=== PATIENT | female | born 1960 | race Caucasian/White ===

== ENCOUNTER 2020-01-24 07:43 | Outpatient (REF) | payer OTHER, SELFPAY ==
--- NOTE | 2020-01-24 07:48 | MM_ITS ---
EXAMINATION: MM SCREENING DIGITAL BREAST TOMOSYNTHESIS, BILATERAL CLINICAL INFORMATION: Screening. Asymptomatic. The lifetime risk of breast cancer based on the Tyrer-Cuzick Model is 8.2%. COMPARISON: Mammography: July 25, 2018 and studies dating back to October 01, 2011 TECHNIQUE: Digital breast tomosynthesis is performed in both the craniocaudal and mediolateral oblique views along with computer-aided detection (CAD). Synthesized 2D images are generated from the tomosynthesis. FINDINGS: The breasts are extremely dense, which lowers the sensitivity of mammography (ACR BI-RADS breast composition Category d). There are no significant masses, abnormal calcifications, or other abnormalities. MM/MM tomosynthesis screening BI IMPRESSION: There are no significant changes from prior study. ASSESSMENT: BI-RADS 1: Negative RECOMMENDATION: Routine annual mammography screening. This patient's information was entered into a reminder system with a target due date for their next mammogram.
== END 2020-01-24 07:44 | disposition home or self-care (01) ==
LOC: HO.MAMMO 07:43
PROVIDERS: PCP Internal Medicine; Visit Provider Internal Medicine
DX: Z12.31 Encounter for screening mammogram for malignant neoplasm of breast (principal)
CPT/HCPCS: 77063; 77067

== ENCOUNTER 2020-02-13 08:21 | Outpatient (REF) | payer OTHER, SELFPAY ==
[2020-02-13 08:39] LABS: COVID-19 Test Negative (Negative)
== END 2020-02-13 08:22 | disposition home or self-care (01) ==
LOC: HO.EMPCOV 08:21
PROVIDERS: PCP Internal Medicine; Visit Provider Internal Medicine
DX: Z20.828 Contact with and (suspected) exposure to other viral communicable diseases (principal)
CPT/HCPCS: 87635; C9803

== ENCOUNTER 2021-02-09 07:26 | Outpatient (REF) | payer OTHER, SELFPAY ==
--- NOTE | ~2021-02-09 | MM_ITS ---
EXAMINATION: MM SCREENING DIGITAL BREAST TOMOSYNTHESIS, BILATERAL CLINICAL INFORMATION: Screening. Asymptomatic. The lifetime risk of breast cancer based on the Tyrer-Cuzick Model is 8%. COMPARISON: Mammography: 01/24/2020, 07/25/2018, 07/20/2017 TECHNIQUE: Digital breast tomosynthesis is performed in both the craniocaudal and mediolateral oblique views along with computer-aided detection (CAD). Synthesized 2D images are generated from the tomosynthesis. Additional right CC view is provided. FINDINGS: The breasts are heterogeneously dense, which may obscure small masses (ACR BI-RADS breast composition Category c). There are no significant masses, abnormal calcifications, or other abnormalities. Parenchymal pattern is similar to prior studies. No developing density. No significant changes. MM/MM tomosynthesis screening BI IMPRESSION: No mammographic evidence of malignancy. ASSESSMENT: BI-RADS 1: Negative RECOMMENDATION: Routine annual mammography screening. This patient's information was entered into a reminder system with a target due date for their next mammogram.
== END 2021-02-09 07:27 | disposition home or self-care (01) ==
LOC: HO.MAMMO 07:26
PROVIDERS: PCP Internal Medicine; Visit Provider Obstetrics & Gynecology
DX: Z12.31 Encounter for screening mammogram for malignant neoplasm of breast (principal)
CPT/HCPCS: 77063; 77067

== ENCOUNTER 2022-02-16 07:31 | Outpatient (REF) | payer OTHER, SELFPAY ==
--- NOTE | ~2022-02-16 | MM_ITS ---
EXAMINATION: MM SCREENING DIGITAL BREAST TOMOSYNTHESIS, BILATERAL CLINICAL INFORMATION: Screening. Asymptomatic. The lifetime risk of breast cancer based on the Tyrer-Cuzick Model is 7.7%. COMPARISON: Mammography: February 09, 2021 and studies dating back to June 11, 2015 TECHNIQUE: Digital breast tomosynthesis is performed in both the craniocaudal and mediolateral oblique views along with computer-aided detection (CAD). Synthesized 2D images are generated from the tomosynthesis. FINDINGS: The breasts are extremely dense, which lowers the sensitivity of mammography (ACR BI-RADS breast composition Category d). There are no significant masses, abnormal calcifications, or other abnormalities. MM/MM tomosynthesis screening BI IMPRESSION: No significant changes from prior exam. ASSESSMENT: BI-RADS 1: Negative RECOMMENDATION: Routine annual mammography screening. This patient's information was entered into a reminder system with a target due date for their next mammogram.
== END 2022-02-16 07:32 | disposition home or self-care (01) ==
LOC: HO.MAMMO 07:31
PROVIDERS: PCP Internal Medicine; Visit Provider Internal Medicine
DX: Z12.31 Encounter for screening mammogram for malignant neoplasm of breast (principal)
CPT/HCPCS: 77063; 77067

== ENCOUNTER 2022-10-18 06:34 | Day surgery (SDC) | payer OTHER, SELFPAY ==
--- NOTE | 2022-10-15 10:08 | HO.ANESPROP2 ---
Documented by User: Vanessa Lawler NP 10/15/22 10:08 HPI - Anesthesia Eval Consult details Narrative: 62yo F for Colonoscopy [facility] Past Medical History Medical History (Updated 10/15/22 @ 06:34 by Maria Victoria Shaw RN) Abnormal colonoscopy Surgical History Surgical History (Updated 10/15/22 @ 06:34 by Maria Victoria Shaw RN) H/O: hysterectomy [place] teeth extracted Social History Social History (System 12/30/20 @ 09:06 by Shayna Ventura) Patient Tobacco Use Status: Never used Tobacco Use of substances other than those prescribed or required for medical reasons: No Are you DNR?: No Advance Directives: No Advance Directives Information Provided: Yes Meds Allergies Allergy/AdvReac Type Severity Reaction Status Date / Time bee pollen [bee stings] Allergy Anaphylaxis Verified 10/18/22 06:53 Home Medications Medication Instructions Recorded Confirmed Last Taken Type multivitamin 1 tab PO DAILY 10/18/22 10/18/22 Unknown History Exam Exam Date and Time: October 15, 2022 100 Assessment and Plan Assessment Anesthesia Assessment: Chart Reviewed Documented by User: Victor Manuel Sagastume MD 10/18/22 15:40 [facility] Past Medical History Medical History (Updated 10/15/22 @ 06:34 by Maria Victoria Shaw RN) Abnormal colonoscopy Functional capacity: independent ambulation Family History Family history of problems with anesthesia: No Surgical History Surgical History (Updated 10/15/22 @ 06:34 by Maria Victoria Shaw RN) H/O: hysterectomy [place] teeth extracted History of Problems with Anesthesia: No Social History Social History (System 12/30/20 @ 09:06 by Shayna Ventura) Patient Tobacco Use Status: Never used Tobacco Use of substances other than those prescribed or required for medical reasons: No Are you DNR?: No Advance Directives: No Advance Directives Information Provided: Yes Meds Allergies Allergy/AdvReac Type Severity Reaction Status Date / Time bee pollen [bee stings] Allergy Anaphylaxis Verified 10/18/22 06:53 Home Medications Medication Instructions Recorded Confirmed Last Taken Type multivitamin 1 tab PO DAILY 10/18/22 10/18/22 Unknown History Exam Airway Mallampati Class: III Neck ROM: Full Loose/Missing/Broken Teeth: Yes Assessment and Plan Assessment Anesthesia Assessment: Anesthesia Plan Discussed Final Anesthetic Review Family History of Problems with Anesthesia: No History of Problems with Anesthesia: No NPO: Yes ASA Class: I Final Preanesthetic Review: Meds/Allgs Chart Reviewed, Consent Obtained/Reviewed and Anes Risks/Benef Reviewed Patient Risk: Intermediate Procedure Risk: Intermediate Anesthetic Plan Anesthetic Plan: MAC: Disposition: Standard PACU
[2022-10-18 06:57] VITALS: BP 105/73; PULSE 75; RESP 18; TEMP 36.3; O2SAT 97; BMI 23.7
[2022-10-18] MEDS: Lactated Ringers 1,000 ML 100 ML IVCONT (07:16)
[2022-10-18 08:30] VITALS: BP 91/52; PULSE 68; RESP 16; TEMP 36.1; O2SAT 97
--- NOTE | 2022-10-18 08:31 | PM.OP ---
Brief Operative Note Date of Service: 10/18/22 Pre-op diagnosis: Screening Post-op diagnosis: other (Diverticulosis) Procedure: Colonoscopy to the cecum Surgeon: Hadley Hinds Anesthesia: MAC Was an Jewel Hole Driller used for this Procedure?: No Estimated blood loss (mL): 0 Pathology: none sent Condition: stable Disposition: PACU
[2022-10-18 08:45] VITALS: BP 99/52; PULSE 55; RESP 16; O2SAT 97
[2022-10-18 09:00] VITALS: BP 116/59; PULSE 55; RESP 16; TEMP 36.2; O2SAT 97
--- NOTE | 2022-10-18 10:33 | OP_ITS ---
DATE OF SERVICE: 10/18/2022 SURGEON: Hadley Hinds MD INDICATIONS: The patient presents for followup of personal history of tubular adenoma of the colon, family history of colon cancer, and colorectal cancer screening. Full consent was obtained from her for this, including risks of bleeding and perforation. PREOPERATIVE DIAGNOSIS: POSTOPERATIVE DIAGNOSIS: PROCEDURE PERFORMED: Colonoscopy to cecum. ESTIMATED BLOOD LOSS: COMPLICATIONS: ANESTHESIA: Monitored anesthesia care. ASSISTANTS: SPECIMENS: PREOPERATIVE DIAGNOSES: Personal history of tubular adenoma of the colon, family history of colon cancer, colorectal cancer screening. POSTOPERATIVE DIAGNOSES: Personal history of tubular adenoma of the colon, family history of colon cancer, colorectal cancer screening, mild diverticulosis, and internal hemorrhoids. DESCRIPTION OF PROCEDURE: The patient was placed in the left lateral decubitus position. The digital rectal exam revealed no abnormalities. The Olympus video pediatric colonoscope was entered into the rectum and advanced easily to the cecum. Once in the cecum, I did identify normal-appearing cecal pouch with appendiceal orifice and a normal-appearing ileocecal valve. After copious irrigation and suctioning, the cecum was well visualized and appeared normal. There was transillumination of light deep in the right lower quadrant. The scope was then slowly withdrawn assessing all mucosal surfaces carefully. Preparation was excellent after a lot of irrigation and suctioning. I did not visualize any sign of polyps, colitis, nor angiodysplasia. There was a mild amount of sigmoid diverticulosis. In the rectum, scope was retroflexed visualizing internal hemorrhoids, but no other pathology. The rectal mucosa appeared normal. Scope was straightened out and withdrawn from the patient. She tolerated the procedure well and was returned to the recovery area in stable condition. IMPRESSION: 1. Mild diverticulosis. 2. Internal hemorrhoids. PLAN: I would recommend a repeat colonoscopy in 5 years for further screening given her family history of colon cancer and personal history of tubular adenoma of the colon. She will otherwise see me on a p.r.n. basis. MD SIMEON Padilla/FELICITA / [phone]
== END 2022-10-18 09:29 | disposition home or self-care (01) ==
PROVIDERS: PCP Internal Medicine; Visit Provider Internal Medicine
PROC: 0DJD8ZZ Inspection of Lower Intestinal Tract, Via Natural or Artificial Opening Endoscopic (ICD-10-PCS; CPT 45378; principal; 2022-10-18 07:30)
DX: Z12.11 Encounter for screening for malignant neoplasm of colon (principal); Z86.010 Personal history of colon polyps; Z80.0 Family history of malignant neoplasm of digestive organs; K57.30 Diverticulosis of large intestine without perforation or abscess without bleeding; K64.8 Other hemorrhoids
CPT/HCPCS: 45378; J2250

== ENCOUNTER 2023-02-24 07:26 | Outpatient (REF) | payer OTHER, SELFPAY ==
--- NOTE | ~2023-02-24 | MM_ITS ---
EXAMINATION: MM SCREENING DIGITAL BREAST TOMOSYNTHESIS, BILATERAL CLINICAL INFORMATION: Screening. Asymptomatic. COMPARISON: Mammography: This study is compared with prior exams dating back to 2017. TECHNIQUE: Digital breast tomosynthesis is performed in both the craniocaudal and mediolateral oblique views along with computer-aided detection (CAD). Synthesized 2D images are generated from the tomosynthesis. FINDINGS: The breasts are heterogeneously dense, which may obscure small masses (ACR BI-RADS breast composition Category c). In the lower outer quadrant of the right breast, just inferior to the posterior nipple line, there is an asymmetry which warrants additional mammographic and targeted sonographic evaluation. In the left breast, there are no significant masses, abnormal calcifications, or other abnormalities. MM/MM tomosynthesis screening BI IMPRESSION: Asymmetry of the right breast warrants additional mammographic and targeted sonographic evaluation. No mammographic signs of malignancy left breast. ASSESSMENT: BI-RADS BI-RADS 0 - Incomplete: Needs additional Imaging. RECOMMENDATION: 1. Additional views of the right breast 2. Targeted ultrasound if warranted after review of the additional views. 3. Radiology department staff will contact the patient for additional imaging. Additional Imaging required This examination should not preclude the clinical evaluation of a suspicious palpable abnormality. This patient's information was entered into a reminder system with a target due date for their next mammogram.
== END 2023-02-24 07:27 | disposition home or self-care (01) ==
LOC: HO.MAMMO 07:26
PROVIDERS: PCP Internal Medicine; Visit Provider Internal Medicine
DX: Z12.31 Encounter for screening mammogram for malignant neoplasm of breast (principal); Z00.00 Encounter for general adult medical examination without abnormal findings; D72.820 Lymphocytosis (symptomatic); R82.90 Unspecified abnormal findings in urine
CPT/HCPCS: 36415; 77063; 77067; 80053; 80061; 81001; 85025; 87086

== ENCOUNTER → 2023-02-24 07:30 | Outpatient (BNV) | payer OTHER, SELFPAY | PROVIDERS: PCP Internal Medicine; Visit Provider Radiology Diagnostic Radiology | DX: Z12.31 Encounter for screening mammogram for malignant neoplasm of breast (principal) | CPT/HCPCS: 77063; 77067 ==

== ENCOUNTER 2023-03-04 11:00 | Outpatient (REF) | payer OTHER, SELFPAY ==
[2023-03-04 12:11] LABS: TSH reflex Free T4 1.59 uIU/mL (0.32-4.0)
== END 2023-03-04 11:01 | disposition home or self-care (01) ==
LOC: HO.LNP 11:00
PROVIDERS: Visit Provider Internal Medicine
DX: Z13.29 Encounter for screening for other suspected endocrine disorder (principal); Z83.49 Family history of other endocrine, nutritional and metabolic diseases
CPT/HCPCS: 84443

== ENCOUNTER → 2023-03-24 08:30 | Outpatient (BNV) | payer OTHER, SELFPAY | PROVIDERS: PCP Internal Medicine; Visit Provider Radiology Diagnostic Radiology | DX: R92.8 Other abnormal and inconclusive findings on diagnostic imaging of breast (principal) | CPT/HCPCS: 77061; 77065 ==

== ENCOUNTER 2023-03-24 08:31 | Outpatient (REF) | payer OTHER, SELFPAY ==
--- NOTE | ~2023-03-24 | MM_ITS ---
EXAMINATION: MM DIAGNOSTIC DIGITAL BREAST TOMOSYNTHESIS, RIGHT CLINICAL INFORMATION: 1 view asymmetry seen right breast MLO projection slightly inferior, middle depth without definite CC correlate. Evaluate with diagnostic views. COMPARISON: Mammography: 02/24/2023, 02/16/2022, 02/09/2021, 01/24/2020, 07/25/2018, and dating back to 2013. TECHNIQUE: Digital breast tomosynthesis is performed in the following views: Full-field right ML view, 3-D spot compression right MLO and CC views. FINDINGS: The breasts are extremely dense, which lowers the sensitivity of mammography (ACR BI-RADS breast composition Category d). On diagnostic views, the one view asymmetry in the slightly inferior right breast, middle one third, just below the nipple line, completely effaces and is consistent with summation artifact of overlapping normal breast tissues. When compared with 07/25/2018 mammography, the same asymmetry was present on the right MLO, but was not present on exams spanning 2022 through 2021. No CC correlate is identified on today's exam. No new suspicious mammographic abnormality is present secondary distinguish from the extremely dense breast tissue. Subtle vascular calcifications noted in the slightly superior medial right breast. MM/MM tomosynthesis diagnostic RT IMPRESSION: There are no findings suspicious for malignancy in the right breast. The 1 view asymmetry completely effaces on diagnostic views, consistent with normal overlapping fibroglandular tissue. Recommend the patient resume routine annual screening. Given breast density, this patient may benefit from screening ultrasound as well. ASSESSMENT: BI-RADS BI-RADS 1 - Negative RECOMMENDATION: 1 year F/U Results were provided to the patient at time of visit by the technologist. This patient's information was entered into a reminder system with a target due date for their next mammogram.
== END 2023-03-24 08:32 | disposition home or self-care (01) ==
LOC: HO.MAMMO 08:31
PROVIDERS: PCP Internal Medicine; Visit Provider Internal Medicine
DX: N64.89 Other specified disorders of breast (principal)
CPT/HCPCS: 77061; 77065

== ENCOUNTER 2024-01-17 10:29 | Outpatient (AMB) | payer OTHER, SELFPAY ==
--- NOTE | 2024-01-17 11:02 | AM.OFFWIN_ITS ---
Intake Vital Signs 01/17/24 11:03 Weight 155 lb 6 oz BP 110/68 Blood Pressure Location Rt brachial Position Sitting Pulse 85 Pulse Source Pulse Oximeter Temp 100.2 F Temp Source Oral Pulse Oximetry (%) 94 Oxygen Delivery Method Room Air Intake Visit Reasons: EP Fever, cough, nausea Intake Note: Patient here for cough, nausea, fevers which started Tuesday. Patient Tobacco Use Status: Never used Tobacco Allergies bee pollen [bee stings] Allergy (Verified 01/17/24 11:12) Anaphylaxis Do you need a note to return to daycare/school/sports/work: No HPI HPI Comments History of Present Illness Details 63 y/o female patient who presents to [facility] walk in clinic with c/o URI symptoms for four days now. Reports subjective fevers at home. Reports Nausea but no vomiting, Anorexia and headaches. Her daughter with similar symptoms at home. Tested negative for COVID 19 last week. PFSH Medical History (Updated 10/15/22 @ 06:34 by Maria Victoria Shaw RN) Abnormal colonoscopy Surgical History (Updated 10/15/22 @ 06:34 by Maria Victoria Shaw RN) [place] teeth extracted H/O: hysterectomy Social History (System 12/30/20 @ 09:06 by Shayna Ventura) Patient Tobacco Use Status: Never used Tobacco Review of Systems Const All systems reviewed & are unremarkable except as noted in HPI and below Physical Exam Vital Signs: Last Vital Signs Temp 100.2 F 01/17/24 11:03 Pulse 85 01/17/24 11:03 BP 110/68 01/17/24 11:03 Pulse Ox 94 01/17/24 11:03 Oxygen Delivery Method Room Air 01/17/24 11:03 Const General: cooperative and no acute distress Orientation/consciousness: patient oriented x3 HEENT Head: Yes normocephalic Ears: external ears normal and TM abnormal with fluid behind the TM General nose exam: Normal external nose present Face and sinus: Yes sinuses nontender Mouth: moist mucous membranes Throat: Yes uvula midline Resp Effort & Inspection: normal respiratory effort and able to speak in complete sentences Auscultation: clear to auscultation bilaterally, no crackles, no rales, no rhonchi and no wheezes Cardio Heart sounds: S1 normal heart sound present and S2 normal heart sound present Neuro General: patient oriented x3 Assessment & Plan Assessment & Plan (1) Acute respiratory disease: Code(s): J06.9 - Acute upper respiratory infection, unspecified Plan: OTC remedies for cough and cold Ordered SARs Acetaminophen for pain relief Orders: Orders SARS-CoV2/FLU/RSV Today R09.89 - Other specified symptoms and signs involving the circulatory and respiratory systems Medications: New acetaminophen 1,000 mg (2 x 500 mg) PO Q6H PRN 60 caps 0RF pain J06.9 - Acute upper respiratory infection, unspecified ondansetron 8 mg PO Q8H 30 tabs 0RF J06.9 - Acute upper respiratory infection, unspecified, R11.0 - Nausea benzonatate 100 mg PO TID 90 caps 0RF J06.9 - Acute upper respiratory infection, unspecified Coding Level of Care Code Est Pt Level 3 (60083) Diagnoses Acute respiratory disease J06.9 Time Spent (min) 15
[2024-01-17 11:03] VITALS: BP 110/68; PULSE 85; TEMP 37.9; O2SAT 94
== END 2024-01-17 13:49 | disposition home or self-care (01) ==
PROVIDERS: PCP Internal Medicine; Visit Provider Nurse Practitioner Family
DX: J06.9 Acute upper respiratory infection, unspecified (principal)

== ENCOUNTER 2024-01-17 10:29 | Outpatient (REF) | payer OTHER, SELFPAY ==
[2024-01-17 14:35] LABS: Influenza A PCR NEGATIVE (Negative); Influenza B PCR NEGATIVE (Negative); Resp Syncy Virus RNA Qual PCR NEGATIVE (Negative); SARS COV2 PCR INHOUSE NEGATIVE (Negative)
== END 2024-01-17 10:30 | disposition home or self-care (01) ==
LOC: HO.LNP 10:29
PROVIDERS: PCP Internal Medicine; Visit Provider Nurse Practitioner Family
DX: J06.9 Acute upper respiratory infection, unspecified (principal)
CPT/HCPCS: 0241U

== ENCOUNTER 2024-02-27 07:27 | Outpatient (REF) | payer OTHER, SELFPAY ==
--- NOTE | ~2024-02-27 | MM_ITS ---
EXAMINATION: MM SCREENING DIGITAL BREAST TOMOSYNTHESIS, BILATERAL CLINICAL INFORMATION: Screening. Asymptomatic. COMPARISON: Mammography: Comparison is made with available priors TECHNIQUE: Digital breast mammography with tomosynthesis is performed in both the craniocaudal and mediolateral oblique views along with computer-aided detection (CAD). FINDINGS: The breasts are heterogeneously dense, which may obscure small masses (ACR BI-RADS breast composition Category c). There are no significant masses, abnormal calcifications, or other abnormalities. MM/MM tomosynthesis screening BI IMPRESSION: No mammographic evidence of malignancy. ASSESSMENT: BI-RADS BI-RADS 1 - Negative RECOMMENDATION: Routine annual mammography screening. 1 year F/U This examination should not preclude the clinical evaluation of a suspicious palpable abnormality. This patient's information was entered into a reminder system with a target due date for their next mammogram. Electronically signed by: Romina Espinal DO 03/04/2024 05:48 PM [facility]
--- OUTSIDE RECORDS SUMMARY | 2024-02-27 07:29 | XMS_ITS | Continuity of Care Document ---
Author Organization [facility] Address [address] [place] [address] Phone Care Team Providers Care Air Traffic Coordinator Name Role Phone Brandt DO, Roshan Unavailable Unavailable Advance Directives Directive Yes / No Effective Date File Name No Information Encounters Encounter Description Practice Location Reason(s) For Visit Diagnoses Date Provider Providers Copied on Encounter [facility] , [address], [place], [place], [id number], [place] tel:[phone] [place] No Information Sep-2 6200 7 Brandt Islas. [address], [address], [place], [place], [id number], [place]. tel:[phone] Referring Provider: Riley Jack MD, [address] [facility], [place], [address]. tel:[phone] Family History Family Member Type Diagnosis Age At Onset No Information Payers Payer name Insurance type Covered green party ID Authoriza tion(s) No Information Social History Type Description Quantity Date Captured Comments Sex Female Smoking Status No Information Chief Complaint And Reason For Visit No Information Reason For Referral Reason For Referral No Information History Of Present Illness Encounter Date Complaint History Of Prese nt Illness No Information Functional Status Date Functional Assessmen t No Information Instructions Date Instruction Additional Infor mation No Information Assessments Type Assessment Date No Information Patient Care Teams Name Effective Dates (start - stop) Status Members No Information
== END 2024-02-27 07:28 | disposition home or self-care (01) ==
LOC: HO.MAMMO 07:27
PROVIDERS: PCP Internal Medicine; Visit Provider Internal Medicine
DX: Z12.31 Encounter for screening mammogram for malignant neoplasm of breast (principal)
CPT/HCPCS: 77063; 77067

== ENCOUNTER → 2024-02-27 07:30 | Outpatient (BNV) | payer OTHER, SELFPAY | PROVIDERS: PCP Internal Medicine; Visit Provider Internal Medicine | DX: Z12.31 Encounter for screening mammogram for malignant neoplasm of breast (principal) | CPT/HCPCS: 77063; 77067 ==

== ENCOUNTER 2024-02-28 10:32 | Outpatient (REF) | payer OTHER, SELFPAY ==
[2024-02-28 10:35] LABS: MANUAL DIFF FLAG NO
[2024-02-28 11:11] LABS: Basophils Absolute Auto 0.1 X10*3/uL (0.0-0.2); Eosinophils Absolute Auto 0.2 X10*3/uL (0.0-0.4); Eosinophils Percent Auto 3.7 % (0-4); Hematocrit 42.1 % (37.0-47.0); Hemoglobin 13.7 g/dl (12.0-16.0); Imm Gran Abs Auto 0.01 X10*3/uL (0.00-0.03); Imm Gran Pct Auto 0.2 % (0.0-0.4); Lymphocytes Absolute Auto 2.1 X10*3/uL (1.2-4.9); Lymphocytes Percent Auto 40.3 % (20-40); Mean Corpuscular HGB Conc 32.5 g/dl (31.0-35.0); Mean Corpuscular Hemoglobin 30.6 pg (27.0-33.0); Mean Platelet Volume 9.7 fL (9.4-12.3); Monocytes Absolute Auto 0.4 X10*3/uL (0.1-1.2); Monocytes Percent Auto 7.8 % (2-11); Neutrophils Absolute Auto 2.4 x10*3/uL (2.0-8.3); Platelet Count 302 X10*3/uL (160-400); Red Blood Count 4.48 X10*6/uL (4.20-5.50); Red Cell Distribution Width 12.8 % (11.0-16.0); White Blood Count 5.1 X10*3/uL (4.8-10.8)
[2024-02-28 11:12] LABS: Appearance Urine Clear; Color Urine Yellow; Glucose Urine UA Negative (Negative); Leukocyte Esterase Urine Moderate (2+) (Negative); Nitrite Urine Negative (Negative); UMIC TRIGGER UACC YES; Urine Blood Negative (Negative); Urine Ketones Negative (Negative); Urine Protein Negative (Neg-Trace)
--- OUTSIDE RECORDS SUMMARY | 2024-02-28 11:35 | XMS_ITS | Continuity of Care Document ---
Author Organization [facility] Address [address] [place] [address] Phone Care Team Providers Care Traffic Recorder Name Role Phone Brandt DO, Roshan Unavailable Unavailable Advance Directives Directive Yes / No Effective Date File Name No Information Encounters Encounter Description Practice Location Reason(s) For Visit Diagnoses Date Provider Providers Copied on Encounter [facility] , [address], [place], [place], [id number], [place] tel:[phone] [place] No Information Sep-2 6200 7 Brandt Islas. [address], [place], [place], [id number], [place]. tel:[phone] Referring Provider: Riley Jack MD, [address] [facility], [place], [address]. tel:[phone] Family History Family Member Type Diagnosis Age At Onset No Information Payers Payer name Insurance type Covered republican ID Authoriza tion(s) No Information Social History [...]
[2024-02-28 11:40] LABS: Alanine Aminotransferase 33 U/L (0-31); Albumin Level 4.1 g/dL (3.5-5.0); Alkaline Phosphatase 66 U/L (39-117); Anion Gap 9 (12-20); Aspartate Amino Transferase 28 U/L (5-31); Bilirubin Total 0.5 mg/dL (0.0-1.0); Blood Urea Nitrogen 17 mg/dL (9-16); Calcium 9.4 mg/dL (8.4-10.2); Carbon Dioxide 27 mmol/L (22-29); Chloride 110 mmol/L (96-108); Cholesterol 233 mg/dL (<200); Estimated Glomerular Filt Rate > 60; Glucose Fasting 93 mg/dL (60-99); HDL Cholesterol 82 mg/dL (>40); LDL Cholesterol Calculated 137 mg/dL (<100); Potassium 4.3 mmol/L (3.3-5.1); Sodium 142 mmol/L (135-145); Total Protein 6.8 g/dL (6.5-8.0); Triglycerides 70 mg/dL (<150)
[2024-02-28 13:54] LABS: Bacteria Urine None Seen (None Seen); Hyaline Casts Urine 0-2 /LPF (0-2); RBC Urine 0-2 /HPF (0-2); Squamous Epithelial Cell Urine 0-2 /HPF (0-2); UACC Culture Trigger YES; WBC Urine 0-5 /HPF (0-5)
== END 2024-02-28 10:33 | disposition home or self-care (01) ==
LOC: HO.LNP 10:32
PROVIDERS: Visit Provider Internal Medicine
DX: Z00.00 Encounter for general adult medical examination without abnormal findings (principal); D72.820 Lymphocytosis (symptomatic)
CPT/HCPCS: 80053; 80061; 81001; 85025; 87086